=== PATIENT | male | born 1955 | race Caucasian/White ===

== ENCOUNTER → 2023-07-06 09:35 | Outpatient (REF) | payer OTHER, SELFPAY | LOC: PET 09:35 | PROVIDERS: ATTENDING PHYSICIAN Internal Medicine Hematology & Oncology | DX: C34.12 Malignant neoplasm of upper lobe, left bronchus or lung (principal) | CPT/HCPCS: 78815; A9552 ==

== ENCOUNTER → 2024-01-28 09:58 | Outpatient (REF) | payer OTHER, SELFPAY | LOC: PET 09:58 | PROVIDERS: ATTENDING PHYSICIAN Internal Medicine Hematology & Oncology | DX: C34.12 Malignant neoplasm of upper lobe, left bronchus or lung (principal) | CPT/HCPCS: 78815; A9552 ==

== ENCOUNTER → 2024-07-14 09:29 | Outpatient (REF) | payer OTHER, SELFPAY | LOC: PET 09:29 | PROVIDERS: ATTENDING PHYSICIAN Internal Medicine Hematology & Oncology | DX: C34.12 Malignant neoplasm of upper lobe, left bronchus or lung (principal) | CPT/HCPCS: 78815; A9552 ==

== ENCOUNTER → 2024-12-10 09:01 | Outpatient (REF) | payer OTHER, SELFPAY | LOC: RAD 09:01 | PROVIDERS: ATTENDING PHYSICIAN Internal Medicine Hematology & Oncology; FAMILY PHYSICIAN Family Medicine | DX: Z45.2 Encounter for adjustment and management of vascular access device (principal); C34.12 Malignant neoplasm of upper lobe, left bronchus or lung; Z79.60 Long term (current) use of unspecified immunomodulators and immunosuppressants | CPT/HCPCS: 71250 ==

== ENCOUNTER → 2025-02-09 10:47 | Outpatient (REF) | payer OTHER, SELFPAY | LOC: PAVMRI 10:47 | PROVIDERS: ATTENDING PHYSICIAN Internal Medicine Hematology & Oncology; FAMILY PHYSICIAN Family Medicine | DX: C34.12 Malignant neoplasm of upper lobe, left bronchus or lung (principal); C79.31 Secondary malignant neoplasm of brain; G93.89 Other specified disorders of brain; Z79.899 Other long term (current) drug therapy | CPT/HCPCS: 70553; A9575 ==